=== PATIENT | male | born 1945 | race Caucasian/White ===

== ENCOUNTER 2018-11-21 16:35 | Observation (INO) | payer MEDICARE, BC ==
[2018-11-21] MEDS ORDERED: NS 0.9% 1000 ML** 1,000 ML IV ONE (17:09)
--- NOTE | 2018-11-21 17:31 | ED ---
Altered Mental Status - HPI Summary HPI Summary: A 72 y/o male accompanied by his presents to [facility] with a chief complaint of AMS on 11/21/18. The patients brought the patient into the ED due to him being very forgetful. The patients reports that she was away from her and with her sister from 11/17/18-11/20/18. Last known well time was 10: 00 11/21/18 when they went to [employer]. After that the was on his way to [employer] for [employer]. At 14:00 the patient said that he wanted to see the conservation or heritage architect down the road building a house. Per , the patient seemed fine, but when he came back to his house, he was confused when his asked him about going to see the conservation or heritage architect. Then his noticed things like that he did not remember that his daughter had three dogs, or that his was gone for three days. When bringing the patient to the ED, his reports that the patient was asking where they are going. In the ED the patient is unsure of the president stating, I want to say Hang Wadsworth but I know its not Hang Wadsworth when Giovanni Dao is the president. When asked for the date he reports that it is October in thousand eighteen when it is November in 2018. At the beginning of the exam the patient was asked to remember 3 objects, a television, pen and a horse. Five minutes later at the end of the exam when asked about what objects he was told to remember the patient responded, What, the president? Then when told the objects he admits that he forgot about them completely. His has noticed that the patient has been more forgetful recently but not nearly this severe. He denies any headache, CP, SOB, fevers, double vision, N/V/D, hitting his head, neck pain, difficulty swallowing, or an URI. At triage the patient rated his pain as a 0/10 in severity. He denies any Hx of depression. He reports that his brother two years ago and his sister from [place]. He reports that his mother lived to 96 y/o and his father lived to 101 y/o. He denies smoking but admits to occasional EtOH use. - History Of Current Complaint Chief Complaint: EDAltMentalStatus Stated Complaint: CONFUSION/WEAKNESS Time Seen by Provider: 11/21/18 17:09 Hx Obtained From: Patient, Family/Shop Tech - Last Known Well Date: 11/21/18 at 10:00 Onset/Duration: Still Present Timing: Constant, Lasting Hours Severity Initially: Moderate Severity Currently: Moderate Character: Confusion Aggravating Factor(s): Nothing Alleviating Factor(s): Nothing Associated Signs And Symptoms: Negative: Nausea, Vomiting, Fever, Headache - Allergies/Home Medications Allergies/Adverse Reactions: Allergies Allergy/AdvReac Type Severity Reaction Status Date / Time No Known Allergies Allergy Verified 11/21/18 16:53 Home Medications: Home Medications NK [No Home Medications Reported] 11/21/18 [History Confirmed 11/21/18] PMH/Surg Hx/FS Hx/Imm Hx Endocrine/Hematology History: Denies: Hx Diabetes Cardiovascular History: Denies: Hx Hypertension History: Reports: Hx Renal Disease - Surgical History Surgery Procedure, Year, and Place: INGUINAL HERNIA WITH MESH 8 YEARS AGO - Immunization History Immunizations Up to Date: Yes Infectious Disease History: No Infectious Disease History: Denies: Traveled Outside the [place] in Last 30 Days - Family History Known Family History: Positive: Other - positive: sister [place] - Social History Alcohol Use: None Substance Use Type: Reports: None Smoking Status (MU): Never Smoked Tobacco Review of Systems Negative: Fever Eyes: Negative - double vision Negative: Chest Pain Respiratory: Negative - URI Negative: Shortness Of Breath Negative: Vomiting, Diarrhea, Nausea Musculoskeletal: Negative - neck pain Neurological: Negative - hitting his head, difficulty swallowing, Other - positive: AMS, confusion Negative: Headache All Other Systems Reviewed And Are Negative: Yes Physical Exam - Summary Physical Exam Summary: VITAL SIGNS: Reviewed. GENERAL: Patient is a well-developed and nourished MALE who is lying comfortable in the stretcher. Patient is not in any acute respiratory distress. HEAD AND FACE: No signs of trauma. No ecchymosis, hematomas or skull depressions. No sinus tenderness. EYES: PERRLA, EOMI x 2, No injected conjunctiva, no nystagmus. EARS: Hearing grossly intact. Ear canals and tympanic membranes are within normal limits. MOUTH: Oropharynx within normal limits. NECK: Supple, trachea is midline, no adenopathy, no JVD, no carotid bruit, no c- spine tenderness, neck with full ROM. CHEST: Symmetric, no tenderness at palpation LUNGS: Clear to auscultation bilaterally. No wheezing or crackles. CVS: Regular rate and rhythm, S1 and S2 present, no murmurs or gallops appreciated. ABDOMEN: Soft, non-tender. No signs of distention. No rebound no guarding, and no masses palpated. Bowel sounds are normal. EXTREMITIES: FROM in all major joints, no edema, no cyanosis or clubbing. NEURO: Alert and oriented x 3. Aphasia. Speech is normal and follows commands. SKIN: Dry and warm Triage Information Reviewed: Yes Vital Signs On Initial Exam: Initial Vitals Temp Pulse Resp BP Pulse Ox 97.5 F 89 20 189/73 97 11/21/18 16:45 11/21/18 16:45 11/21/18 16:45 11/21/18 16:45 11/21/18 16:45 Vital Signs Reviewed: Yes Diagnostics - Vital Signs Vital Signs Temp Pulse Resp BP Pulse Ox 11/21/18 17:09 86 98 11/21/18 17:08 191/95 11/21/18 16:45 97.5 F 89 20 189/73 97 - Laboratory Result Diagrams: 11/21/18 18:10 11/21/18 18:10 Lab Statement: Any lab studies that have been ordered have been reviewed, and results considered in the medical decision making process. - Radiology CXR Radiology Interpretation Completed By: Radiologist Summary of Radiographic Findings: No active cardiopulmonary disease is noted. ED physician has reviewed this imaging report. - CT Brain CT Interpretation Completed By: Radiologist Summary of CT Findings: No intracranial mass or hemorrhage is noted. ED physician has reviewed this imaging report. - EKG 17:37 Cardiac Rate: NL - 76 bpm EKG Rhythm: Sinus Rhythm Summary of EKG Findings: Normal sinus rhythm at [address] elevations Re-Evaluation - Re-Evaluation First Eval Re-Evaluation Time: 18:58 Comment: Discussed lab results and consult with neurologist. Discussed plan for admission and patient understands and agrees with this plan. Altered Mental Statu Course/Dx - Course Assessment/Plan: Test results without any significant abnormality, urinalysis is negative for UTI, ABG shows a pH of 7.47, PCO2 35, PO2 95, O2 sat is 98.4 at room air. Chest x-ray impression: No active cardiopulmonary disease is noted. Head CT impression: No intracranial mass or hemorrhage is noted. I discussed my physical exam, findings and test results with Dr. Terry from neurology and he recommends an MRI and admission to the hospitalist to rule out a transient global amnesia. He will follow-up the MRI results and he will consult tomorrow morning. In the ED course the patient is alert and oriented times one now which is improving and the agrees and he is hemodynamically stable. I discussed case with Dr. Redman from the hospital services who agrees to admit the patient to his services for further workup and management. - Diagnoses Differential Diagnosis/HQI/PQRI: Other - transient global amnesia Provider Diagnoses: Transient global amnesia - Provider Notifications Discussed Care Of Patient With: Lynsey Terry Time Discussed With Above Provider: 18:51 Instructed by Provider To: Other - Consulted Dr. Terry who wants to admit the patient to the hospitalist for workup for transit global amnesia and will consult with the patient tomorrow morning. He also requests an MRI and will follow up with the results. Consulted Dr. Friend at 0921 who accepts the patient for admission. Discharge - Sign-Out/Discharge Documenting (check all that apply): Patient Departure - admit Patient Received Moderate/Deep Sedation with Procedure: No - Discharge Plan Condition: Stable Disposition: ADMITTED TO [facility] Referrals: Rebel Velasquez MD [Primary Care Provider] - - Billing Disposition and Condition Condition: STABLE Disposition: Admitted to [facility] - Attestation Statements Document Initiated by Anujae: Yes Documenting Scribe: Pete Gonzalez Provider For Whom Rito is Documenting (Include Credential): Devon Dutton MD Scribe Attestation: I, Pete Gonzalez, scribed for Devon Dutton MD on 11/21/18 at 3374. Scribe Documentation Reviewed: Yes Provider Attestation: The documentation as recorded by the Pete mora accurately reflects the service I personally performed and the decisions made by , Devon Dutton MD Status of Scribe Document: Viewed
[2018-11-21 18:25] LABS: ABS Basophils 0 10^3/ul (0-0.2); ABS Eosinophils 0.4 10^3/ul (0-0.6); ABS Lymphocytes 1.8 10^3/ul (1.0-4.8); ABS Monocytes 0.9 10^3/ul (0-0.8); ABS Neutrophils 3.7 10^3/ul (1.5-7.7); ABS Nucleated RBC 0 10^3/ul; Eosinophil % 5.5 %; Hematocrit 47 % (42-52); Hemoglobin 15.6 g/dl (14.0-18.0); Lymphocyte % 26.1 %; Mean Corpuscular HGB Conc 34 g/dl (31-36); Mean Corpuscular Hemoglobin 31 pg (27-31); Mean Corpuscular Volume 92 fL (80-94); Mean Platelet Volume 8.9 fL (7.4-10.4); Nucleated Red Blood Cells % 0.1; Platelet Count 212 10^3/ul (150-450); Red Blood Count 5.07 10^6/ul (4.00-5.40); Red Cell Distribution Width 14 % (10.5-15); White Blood Count 6.8 10^3/ul (3.5-10.8)
[2018-11-21 18:28] LABS: Urine Appearance Cloudy; Urine Bilirubin Negative (Negative); Urine Blood Negative (Negative); Urine Color Yellow; Urine Glucose Negative (Negative); Urine Ketones Negative (Negative); Urine Nitrite Negative (Negative); Urine Protein Negative (Negative); Urine Specific Gravity 1.024 (1.010-1.030); Urine Urobilinogen Negative (Negative)
[2018-11-21 18:44] LABS: ALT 15 U/L (7-52); AST 23 U/L (13-39); Albumin 4.3 g/dL (3.2-5.2); Albumin/Globulin Ratio 1.6 (1-3); Alkaline Phosphatase 35 U/L (34-104); Anion Gap 7 mmol/L (2-11); BUN/Creatinine Ratio 24.5 (8-20); Blood Urea Nitrogen 24 mg/dL (6-24); CO2 Carbon Dioxide 27 mmol/L (22-32); Calcium 9.5 mg/dL (8.6-10.3); Chloride 108 mmol/L (101-111); Creatine Kinase 66 U/L (10-223); EGFR African American 90.5 (>60); EGFR Non-African American 74.8 (>60); Globulin 2.7 g/dL (2-4); Glucose 97 mg/dL (70-100); Magnesium 2.1 mg/dL (1.9-2.7); Potassium 3.7 mmol/L (3.5-5.0); Sodium 142 mmol/L (135-145)
[2018-11-21 18:52] LABS: Barbiturates Urine Screen None Detected (None Detect); Benzodiazepine Urine Screen None Detected (None Detect); Urine Cannabinoids Screen None Detected (None Detect)
[2018-11-21 19:06] LABS: Acetaminophen < 15 mcg/mL; Alcohol < 10 mg/dL (<10); Salicylate < 2.50 mg/dL (<30)
[2018-11-21 19:18] LABS: TSH (Thyroid Stimulating Horm) 3.36 mcIU/mL (0.34-5.60)
[2018-11-21] MEDS ORDERED: Aspirin EC TAB* 325 MG PO ONE (21:46)
[2018-11-21] MEDS ORDERED: Acetaminophen TAB* 325 MG PO PRN (21:47)
[2018-11-21] MEDS ORDERED: Enoxaparin(*) 40 MG/0.4 ML SYR SUBCUT SCH (22:00)
--- NOTE | 2018-11-22 01:11 | HP ---
CC: Dr. Velasquez * HISTORY AND PHYSICAL: DATE OF ADMISSION: 11/21/18 PROVIDER: Karli Rome NP. PRIMARY CARE PROVIDER: Dr. Velasquez. ATTENDING PHYSICIAN WHILE IN THE HOSPITAL: Dr. Brooklyn Friend * (dictated by Karli Rome NP). CHIEF COMPLAINT: Altered mental status. HISTORY OF PRESENT ILLNESS: Mr. Marcial is a 72-year-old male with no significant past medical history, who per the transported the patient to the emergency room due to altered mental status. The patient had become forgetful at home. This morning at approximately 10 a.m., they went to [employer], they got coffee. The was acting in his normal state of health. After that the waited for [employer]. At 1400, the patient said that he wanted to see the special officer down the road who is building a new house. He went down to check up at the new house. The patient reports that he came home, he took off his boots, put on his slippers and from that point on, he does not remember any other events. Per the , the patient seemed to be fine but when he returned to the house this afternoon at approximately 3:15, he was confused, he kept asking the what was going on. He was having difficulty remembering current life events. The reports that when she was bringing him to the emergency room, he kept asking her what was going on. He did not know where he was. He did not know who the president is. He reported that the president was Hang Wadsworth. When asked what the year and month was, he reported October 2017. The patient reports that the patient did not have any slurred speech, no facial droop. He had no weakness on one side. The patient denies any blurred vision, difficulty ambulating. The is concerned about repetitive questioning and the patient's forgetfulness, so she brought him to the emergency room for further evaluation. In the emergency room, the patient was examined by the emergency room provider. He asked the patient to remember 3 objects. When questioned again about the 3 objects 5 minutes later, the patient was unable to remember the objects the provider had asked him to remember. The patient and his denied any recent illnesses. Denied any fevers, chills, nausea, vomiting, or diarrhea. Denies black or tarry stools. Denies any chest pain or shortness of breath. Denies any recent sick contacts. PAST MEDICAL HISTORY: Significant for complex renal cyst, currently being monitored. PAST SURGICAL HISTORY: History of hernia repair. HOME MEDICATIONS: None. ALLERGIES: No known drug allergies. FAMILY HISTORY: Father lived to be 100 and of old age, mother lived to be 95, of old age. Sister passed due to MS. Mother with a reported history of melanoma. SOCIAL HISTORY: Never smoked and reports occasional alcohol use. No illicit drug use. He is . Surrogate decision maker in the event he is unable to make his own decision is his . He is a full code. REVIEW OF SYSTEMS: A review of 14 systems was completed, all other reviews were negative other than what is mentioned in HPI. PHYSICAL EXAMINATION GENERAL: Mr. Marcial is a 72-year-old male who is alert and oriented at this time. He is pleasant and cooperative. HEENT: Head is atraumatic, normocephalic. Eyes: EOMs are intact. Sclerae anicteric and not pale. Oral mucosa appeared to be moist. NECK: Supple. LUNGS: Clear to auscultation bilaterally. No wheezes, rales, or rhonchi. CARDIAC: S1, S2. Regular rate and rhythm. ABDOMEN: Soft and nontender. Bowel sounds are present x4. EXTREMITIES: Pedal pulses are +2 bilaterally. He is able to move all 4 extremities with 5/5 strength. SKIN: Intact. NEUROLOGIC: He is awake, alert, and oriented x3. He continues to have lapse in memory about events presenting to the hospital and events that have occurred in the emergency room. Cranial nerves II through XII are grossly intact. Bzibfx-we-ahct is intact. Handgrips are equal. Smile is equal. Tongue is midline. Speech is clear. Thought process is intact. The patient reports the current president is Giovanni Dao. He reports the month is November and the year is 2019. He has no pronator drift or lower extremity drifting. DIAGNOSTIC STUDIES/LAB DATA: WBCs are 6.8, RBCs 5.07, hemoglobin 15.6, hematocrit was 47, platelet count was 212. ABG, pH was 7.47, pCO2 was 35, CO2 was 95, HCO3 was 26.5, O2 saturation was 98.4. ABG base excess was 2.1. Sodium 142, potassium 3.7, chloride 108, carbon dioxide 27. Anion gap was 7. BUN was 24, creatinine 0.98. Glucose was 97. Lactic acid 1.9. Calcium 9.5. Magnesium 2.1. Ammonia level was 38. CK was 66. Troponin 0.00. TSH 2.36. Urine was within normal limits. Urine toxicology was negative. Salicylates were negative. Acetaminophen was negative. Serum alcohol was also negative. He had a CT of the brain which showed no acute intracranial mass or hemorrhage. He had an MRI of the brain which showed no acute intracranial pathology. He had an electrocardiogram which showed sinus rhythm at a rate of 76. ASSESSMENT AND PLAN: Mr. Marcial is a 72-year-old male with no significant past medical history who presented to the emergency room with altered mental status with forgetfulness and repetitive questioning. Due to his continued confusion, we were asked to see and evaluate him for admission. 1. Altered mental status. I suspect that this could be related to transient global amnesia as the patient has exhibited repetitive questioning. His memory is retuning gradually since coming to the emergency room. The patient now can remember going to have coffee this morning and pizza, going to the neighbor's house and returning home. He continues to have memory lapse about his ride to the hospital and why he was coming here. I will place him on telemetry and monitor for any arrhythmias. He did have a CT and MRI of the brain, which were within normal limits. I will get a lipid profile for the morning. I will give him full strength aspirin and start him on 81 aspirin p.o. daily. I will order an EEG to rule out any epileptiform activity and consult Neurology. Dr. Terry will see him tomorrow. 2. FEN. He can have a regular diet. 3. Code status. He is a full code. 4. DVT prophylaxis. I will place him on Lovenox subcu daily. 5. Disposition. He will be placed on observation. TIME SPENT: Time spent on this admission was approximately 60 minutes, greater than half that time was spent at the bedside reviewing the events leading thus far to his admission, performing my physical exam, and implementing my plan of care. I have discussed this with my attending, Dr. Brooklyn Friend, she is in agreement with my plan. KARLI ROME, AUTOMOBILE MECHANIC HELPER [id number]/[facility] #: [id number] [facility] HOSPITALJusten
[2018-11-22 06:10] LABS: BUN/Creatinine Ratio 21.1 (8-20); Calcium 8.3 mg/dL (8.6-10.3); EGFR African American 99.8 (>60); EGFR Non-African American 82.5 (>60); HDL Cholesterol 44.3 mg/dL; Potassium 3.8 mmol/L (3.5-5.0)
[2018-11-22] MEDS ORDERED: Aspirin EC TAB* 81 MG TAB.EC PO SCH (09:00)
--- NOTE | 2018-11-22 12:41 | CONS ---
NEUROLOGY CONSULTATION NOTE: DATE OF CONSULT: 11/22/18 CONSULTING PROVIDER: Karli Rome NP REASON FOR CONSULT: Amnesia. CHIEF COMPLAINT: Acute memory loss. 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 The patient was in normal state of health. He went out to have breakfast with his spouse. He then went out to have lunch at 11 o'clock. The patient stated that he had pizza and recalls coming back home. At approximately 2 o'clock, the patient drove to meet the new energy conservation director. The patient retired in 2002 after serving for 36 years. He stated that it was slightly a shocker and he felt somewhat concerned after meeting the new haley that is taking over his job. He felt slightly stressed and anxious. He came home and recalls taking off his boots and putting on his slippers. However, after that, his spouse was talking to him asking him if he went to see the new officer in the neighborhood. The patient did not recall leaving the house. He stated, "that truck never left the driveway." According to the spouse , the patient continued to repeat himself. She immediately checked to see if he was having a stroke, but did not see any other neurological signs. She took him in the car and brought him to [facility]. On their way to the hospital, he kept repeating where they were going. He kept saying that he went somewhere earlier the morning but does not recall where. He did not remember getting or having breakfast with his spouse or having pizza earlier in the afternoon. The patient was then brought to the ER, where he was evaluated by Dr. Dutton. The CT of the head did not show any intracranial abnormality. At approximately 8 o'clock, the patient was transferred to the [address] [place] [address], where he slowly started recovering. The patient does recall what happened that morning, but does not call anything from 2 p.m. to 8 p.m. The patient did not have any sexual activity. He did have mild headache and dizziness throughout the day yesterday, but nothing out of the ordinary. He did not lose consciousness or had any head injury. He was not taking any medication. The patient does have history of anxiety. He was started on Lexapro a few years ago, but the patient refused to take any medication. The patient did endorse today that he feels anxious, sweaty, palpitation, and feels little tremors. According to the patient's spouse, the patient has had slight memory decline over the last few months. The patient's 36-year-old daughter who also suffers from anxiety had reported that her dad is forgetful. However, there has not been any history of acute amnesia. PAST MEDICAL HISTORY: The patient had hernia operation as well as enlarged spleen and renal complex cyst. MEDICATIONS: He is not on any medication at home. Current Medications: The patient is on: 1. Acetaminophen 650 p.o. every 6 hours as needed. 2. Aspirin 81 mg p.o. daily. 3. Lovenox 40 mg subcu every 24 hours. ALLERGIES: No known drug allergy except for slight allergies to hay. FAMILY HISTORY: His father at age 100. His father had a pacemaker. Mother at 93, she had a diagnosis of polycythemia vera. His brother recently after having CJD (Creutzfeldt-Alex disease). The patient just recently buried his younger brother before [place]. SOCIAL HISTORY: The patient is retired. He denied any tobacco or alcohol use. He enjoys watching basketball games. REVIEW OF SYSTEMS: A 14-point review of systems was obtained and otherwise negative except for what was mentioned in the HPI. PHYSICAL EXAMINATION: Vitals: Temperature of 98 degrees, pulse of 78, respiratory rate of 18, oxygen saturation 98%, blood pressure of 154/78. General: Well nourished, well developed, in no acute distress. Head: Normocephalic without obvious abnormality. Eyes: Conjunctivae/corneas are clear. Neck is supple, symmetrical with no carotid bruits. No nuchal rigidity. Lungs: Clear to auscultation bilaterally. Nonlabored breathing. Cardiovascular: Regular rate and rhythm with normal S1 and S2. Extremities: Normal range of motion with no hammertoes or high arches. Skin: No skin lesions or lacerations. Psych: Affect is broad, slightly anxious, but normal mood. Easy to establish rapport. Neurological Examination: Mental status: Awake and alert, oriented to person, place, time, and general circumstance. Speech and language including expression, naming, repetition, and comprehension were assessed and found to be normal. [place] Cognitive Assessment examination was completed today and the patient scored 26/30. The patient had trouble recalling 3/5 words provided and had difficulty with fluency as he was unable to recall 11 words in 60 seconds. Otherwise, all other components including executive function and visual spatial functions are normal. Cranial nerves: Normal to confrontation testing bilaterally. Pupils are mid range and reactive to light. Normal consensual response. Sensation is intact in the forehead, cheeks, and jaw region bilaterally. No facial droop. Symmetrical palatal elevation. Normal strength against resistance. Tongue is symmetrical and midline with no atrophy or fasciculation. Motor Examination: No abnormal movements or pronator drift. Normal bulk and tone throughout. 5/5 strength in the upper and lower distal and proximal muscles bilaterally. Reflexes: Right/ left brachioradialis 2/2, biceps 2/2, triceps 1/1, patella 1/1, ankle 2/2, plantar flexor/flexor. Sensation is intact to light touch throughout. Coordination: Normal [id number] and rapid alternating movement. Gait and Station: Narrow based. Normal stance and gait. No ataxia. DIAGNOSTIC STUDIES/LAB DATA: An MRI of the brain without contrast was obtained and showed no evidence of intracranial abnormality, temporal lobe atrophy, or acute stroke. An EEG has been ordered and will be obtained today. Laboratory data: The patient had a normal toxicology screen. Urinalysis was negative. Chemistry was unremarkable. No abnormality on CBC. ASSESSMENT: Mr. Tom Marcial is a 72-year-old man with no significant past medical history who presented with sudden amnesia. I suspect the patient has transient global amnesia. He has no evidence of a focal neurological deficit to suspect a temporal lobe infarction. The episode lasted approximately 6 hours , which would be very atypical for temporal lobe epilepsy. There was no reported convulsions. The patient does not have any fevers or leukocytosis to suspect an encephalitis, and he has recovered fairly quickly. 1. Transient global amnesia. 2. Generalized anxiety disorder. 3. At risk of mild cognitive impairment given the [place] Cognitive Assessment examination, the family's history of increasing short-term memory loss in the past. However, the patient is anxious and is not being treated with any medication for anxiety and therefore that can cause slight impairment in cognition. RECOMMENDATIONS: Please obtain an EEG. The patient had a TSH level that was within normal range of 3.36. Given his age and possibly undiagnosed hypertension, I would continue the patient on aspirin 81 mg daily for primary cerebrovascular and cardiovascular prevention. In regards to the LDL of 97, since this is not an acute stroke and we do not suspect a TIA, we discussed and agreed to proceed with lifestyle modification to improve his LDL level (which is not really elevated). We will do a repeat [place] Cognitive Assessment as an outpatient in 3 to 4 weeks. He should follow up with us at that time. We will arrange a followup appointment. Following the EEG, if the results are normal, we recommend discharging the patient with neurology followup. TIME SPENT: Seventy-five minutes, of which more than 50% was spent obtaining history, examining the patient, and discussing the treatment plan and prognosis. The patient has a 5% risk of recurrence. [id number]/[facility] #: [id number] [facility]TD[facility]
[2018-11-22 15:25] VITALS: BP 150/82
--- NOTE | 2018-11-22 20:18 | EEG ---
ELECTROENCEPHALOGRAPHY: DATE OF STUDY: 11/22/18 - ROOM #438 DATE READ: 11/22/18 TIME OF TRACIN:08 to 11:33. MEDICATION: Aspirin. INDICATION: Mr. Marcial is a 72-year-old man who had acute transient global amnesia. This EEG was requested to evaluate for epileptiform abnormalities. CLINICAL STATE: Awake. REPORT: The waking background showed appropriate organization with clearly defined anterior-posterior voltage gradients and frequency. The patient was unable to close or maintain his eyes closed throughout the recording, but there was an area where he had a normal posterior dominant rhythm of approximately 10 Hz which was symmetrical and showed normal activity. Anteriorly, there was expected pattern of lower voltage, irregular, mixed faster frequency. There was muscle artifact throughout this EEG recording. Hyperventilation and photic stimulation were not performed. Single electrode EKG showed a normal sinus rhythm with a rate of 75 beats per minute. Throughout the recording, there were no epileptiform abnormalities. CLINICAL IMPRESSION: This was an essentially normal waking EEG with diffuse muscle artifact. There were no focal epileptiform abnormalities. A normal interictal EEG does not entirely exclude or support the diagnosis of epilepsy. Clinical correlation is recommended. [id number] #: [id number] MTDD
--- NOTE | 2018-11-22 22:13 | DS ---
CC: Dr. Velasquez; Dr. Terry * DISCHARGE SUMMARY: DATE OF ADMISSION: 11/21/18 DATE OF DISCHARGE: 11/22/18 PRIMARY CARE PROVIDER: Dr. Velasquez. ATTENDING PHYSICIAN: Dr. Delgadillo * (report dictated by Samantha Rodriguez NP). PRIMARY DIAGNOSIS: Acute memory loss. CONSULTATIONS WHILE IN THE HOSPITAL: Dr. Terry, Neurology. STUDIES WHILE IN THE HOSPITAL: 1. Brain CT: Impression: No intracranial mass or hemorrhage noted. 2. Chest x-ray: Impression: No active cardiopulmonary disease noted. 3. Brain MRI: Impression: No acute intracranial pathology. 4. EEG: Pulmonary read is normal. We will follow up official result with Dr. Terry in one month. DISCHARGE HOME MEDICATIONS: New home medications: Aspirin 81 mg p.o. daily. Continued home medications: The patient was on no home medications prior to admission. 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 Due to his sudden amnesia, inability to recall leaving his house, and repeating himself, the patient was brought to the emergency room via car. The patient was evaluated by the provider in the emergency room and CT of head did not show any abnormalities. Due to patient's symptomatology, the hospitalist was asked to evaluate for admission. During this hospital stay, the patient underwent an MRI as mentioned above. In addition, he was evaluated by Dr. Terry from Neurology. The patient improved slowly and is able to recall what happened that morning but does not recall anything from 2 p.m. to 8 p.m. The patient also underwent EEG, official read is pending, but per Dr. Terry it was normal and the patient can be discharged with follow up in one month. Prior to the patient's discharge, he did report some recent anxiety. He reports a history of anxiety. He reports he was once on anxiety medication which helped. He reports that prior to his episode of amnesia, he was feeling increased anxiety due to visiting the new environmental protection officer at home, missing his employment, concerned about fdc. REVIEW OF SYSTEMS: A 14-point review of systems was completed and all are negative. PHYSICAL EXAMINATION: General: Mr. Marcial is a well-developed, well-nourished man, sitting in bed, in no acute distress. The patient is stated age. Vital Signs: Temperature 97.7, pulse 72, respirations 16, O2 sat 97% on room air. BP 150/82. HEENT: PERRLA. EOMs intact. Sclerae without icterus. Oral mucosa is moist without lesion. Tonsils without erythema or exudate. Pharynx is clear. Neck: Full range of motion. No lymphadenopathy. Respiratory: Symmetrical chest expansion. Lungs are clear to auscultation. No rhonchi, wheezes or rubs. CV: Regular rate and rhythm. S1, S2 present. No murmurs, rubs or gallops. Extremities: Skin is warm and smooth bilaterally. No edema. Pedal pulses 2+ bilaterally. Musculoskeletal: Full range of motion. No pain or deformities. Abdomen: Soft, nontender to palpation. Bowel sounds x4. Neuro: Awake, alert and oriented x4. Cranial nerves II through XII grossly intact. Moves all extremities. Motor strength is 5/5 in upper and lower extremities. No drift. Coordination is intact. Sensation is intact. Skin: Grossly intact without lesions. LABORATORY DATA: WBC 6.8, hemoglobin 15.6, hematocrit 47, platelets 212. Sodium 139, potassium 3.8, chloride 110, carbon dioxide 27, BUN 19, creatinine 0.90. Triglyceride 65, cholesterol 152, LDL 97, HDL 44.3. Vitamin B12 316. TSH 3.36. DISCHARGE PLAN/FOLLOW UP: 1. Acute memory loss: It is suspected that the patient had an episode of transient global amnesia secondary to anxiety as he has no focal neurological deficits and the episode lasted approximately 6 hours. In addition, his imaging has been within normal limits. The patient is to follow up with Dr. Terry in one month. The patient is to continue aspirin 81 mg. Also discussed healthy lifestyle modification for healthy cholesterol. 2. Hypertension: The patient was mildly hypertensive while here in inpatient setting with SBP averaging 150. The patient attributes this to his anxiety. I have encouraged the patient to take his blood pressure at home while sitting for at least 5 minutes and record blood pressure and heart rate. I have encouraged the patient to bring these recordings to his followup with the primary care provider, Dr. Velasquez next week. EDUCATION: I have discussed signs and symptoms of new or worsening symptoms with the patient and his and encouraged them to return to emergency department with any of the new or worsening symptoms or any concerns. This is a summarized report of a complex medical history and hospital stay. For further details, please see the entire medical record. TIME SPENT: Approximately 35 minutes was spent on this discharge, greater than half that time was spent [id number] with the patient discussing the discharge plan and instructions. This was also discussed with my attending, Dr. Delgadillo who agreed with my plan. SAMANTHA RODRIGUEZ, [employer] [id number] #: [id number] JORDEN
== END 2018-11-22 16:10 | disposition home or self-care (01) ==
LOC: ED 16:35 → MEDTELE 21:47
PROVIDERS: ADMIT Pediatrics; ATTEND Internal Medicine
DX: R41.3 Other amnesia (principal); Z79.82 Long term (current) use of aspirin; I10 Essential (primary) hypertension; Z87.710 Personal history of (corrected) hypospadias
CPT/HCPCS: 36415; 70450; 70551; 71045; 80048; 80053; 80061; 80307; 80320; 80329; 81003; 82140; 82550; 82607; 82803; 83605; 83735; 84443; 84484; 85025; 93005; 95816; 96360; 96372; 99284; A9270-GY; G0378; G0480; J1650